=== PATIENT | female | born 1990 | race Hispanic/Latino ===

== ENCOUNTER 2020-10-10 05:14 | Inpatient (IN) | payer BC ==
--- NOTE | 2020-10-09 10:26 | PREOPHP ---
Date of Admission: 10/10/2020 History Of Present Illness: Ms. Morales is a 30-year-old female, 3, para 1- 0-1-1 now at 39 weeks gestation. She is admitted for repeat section secondary to prior cesa rean section with suspected cephalopelvic disproportion. She has been followed by me during this pre gnancy without significant complications other than the prior section. She denies recent co ugh, cold. Past Medical History: Please see record. Family History: Please see record. Review of Systems: She reports no recent cough, cold, fever, or chills. No recent nausea or vomiting. No breast knots or lumps. Infant has been active. She denies any vaginal bleeding or spotting. Only rare contracti ons. She denies any bowel problems. Physical Examination: General: Reveals a short-statured female, in no apparent distress. Neck: Supple without adenopathy or thyromegaly. Lungs: Clear. Cardiac: Regular rate and rhythm without murmurs. Breasts: Not examined. Abdomen: Estimated weight of 7+ pounds. Pelvic: Not performed. Extremities: No cyanosis, clubbing, or edema. Impression: A 39+ week , prior sections, suspected cephalopelvic disproportion. Plan: The patient will undergo repeat section. The risks and benefits are discussed. She has signed operative permit in my presence. BERNABE/CHAVA Voice ID: [id number]
[2020-10-09 10:57] LABS: Absolute Lymphocytes (CBC) 1.8 K/uL (0.7-4.9); Basophils % 0.4 % (0-1.3); Hematocrit 42.2 % (36.0-45.0); Lymphocytes % 22.7 % (15.3-44.8); MPV 11.3 fL (7.6-11.3); RBC Red Blood Cell Count 4.66 M/uL (3.86-4.86)
[2020-10-10] MEDS ORDERED: Ringers Lactate 1,000 ML IV PRN (05:16)
[2020-10-10] MEDS ORDERED: NA CIT/CITRIC AC 30 ML ORAL UDC PO ONE (05:22)
[2020-10-10] MEDS ORDERED: FAMOTIDINE 20 MG/2 ML VIAL IV ONE (05:23)
[2020-10-10 05:45] LABS: Urine Appearance CLEAR; Urine Bilirubin NEGATIVE (NEG); Urine Blood NEGATIVE (NEG); Urine Color YELLOW; Urine Glucose NEGATIVE (NEG); Urine Protein NEGATIVE (NEG); Urine Specific Gravity 1.015 (1.005-1.030); Urine Urobilinogen 0.2 mg/dL (0.2-1.0)
[2020-10-10 05:51] VITALS: BMI 31.8
[2020-10-10 05:59] LABS: Urine Microscopic Reflex ORDER UMIC
[2020-10-10] MEDS ORDERED: METOCLOPRAMIDE 10 MG/2mL INJ IV SCH (06:00)
[2020-10-10] MEDS ORDERED: Ringers Lactate 1,000 ML IV SCH (06:00)
[2020-10-10] MEDS ORDERED: CEFAZOLIN/SWI 2gm 2 GM/20 ML SYR ONE (06:04)
[2020-10-10 06:07] LABS: Urine Bacteria >50 /HPF (<20); Urine Mucus 1+ /HPF (NONE SEEN); Urine RBC <5 /HPF (NONE SEEN)
[2020-10-10] MEDS ORDERED: CEFAZOLIN 2 GM in NA CHLORIDE 0.9% 100 ML IVP SCH (07:00)
[2020-10-10] MEDS ORDERED: EPHEDRINE SULF 50 MG/ML VIAL ONE (07:09)
[2020-10-10] MEDS ORDERED: NS 0.9% VIAL 10 ML ONE (07:09)
[2020-10-10] MEDS ORDERED: OXYTOCIN 10 UNIT/ML ML IV ONE (07:09)
[2020-10-10] MEDS ORDERED: FENTANYL CITR 250 MCG/5 ML ONE (07:09)
[2020-10-10] MEDS ORDERED: MORPHINE SULFATE/PF 1 MG/ML (10 ML AMP) ONE (07:09)
[2020-10-10] MEDS ORDERED: Phenylephrine HCl 10 MG/ML 1 ML VIAL ONE (07:09)
[2020-10-10] MEDS ORDERED: LIDOCAINE 1% MPF 5 ML VIAL ONE (07:09)
[2020-10-10] MEDS ORDERED: BUPIVACAINE 0.75% (PF) 2 ML SP ONE (07:10)
[2020-10-10] MEDS ORDERED: METHYLERGONOVINE 0.2MG/ML AMP IM ONE (07:12)
[2020-10-10] MEDS ORDERED: CARBOPROST TROME 250 MCG/ML IM ONE (07:12)
[2020-10-10] MEDS ORDERED: METHYLERGONOVINE 0.2 MG TAB PO PRN (08:20)
[2020-10-10] MEDS ORDERED: CARBOPROST TROME 250 MCG/ML IM PRN (08:20)
[2020-10-10] MEDS ORDERED: ONDANSETRON 4 MG (ODT) TAB PO PRN (08:20)
[2020-10-10] MEDS ORDERED: METHYLERGONOVINE 0.2MG/ML AMP IM PRN (08:20)
--- NOTE | 2020-10-10 08:23 | P.BOP ---
Preoperative diagnosis: 39+ week , prior Postoperative diagnosis: same, viable male infant Primary procedure: repeat , delivery viable male Dental Technologist: Mateo Trammell Estimated blood loss: 800ml Anesthesia: Spinal Complications: None Drain(s): Urinary catheter Transferred to: Other (278) Condition: Good
[2020-10-10] MEDS ORDERED: OXYTOCIN/LR 20 UNIT/1,000 ML BAG IV SCH (09:00)
[2020-10-10] MEDS ORDERED: ONDANSETRON 4 MG/2 ML VIAL IV ONE (14:30)
[2020-10-10] MEDS ORDERED: ONDANSETRON 4 MG/2 ML VIAL ONE (15:03)
[2020-10-10] MEDS: KETOROLAC 30 MG/ML INJ IV PRN (15:55)
[2020-10-10 23:47] LABS: RPR (Rapid Plasma Reagin) NON-REACT (NON-REACT)
[2020-10-11] MEDS: KETOROLAC 30 MG/ML INJ IV PRN (00:20)
[2020-10-11 04:51] LABS: Absolute Lymphocytes (CBC) 2.3 K/uL (0.7-4.9); Basophils % 0.4 % (0-1.3); Hematocrit 33.5 % (36.0-45.0); Lymphocytes % 19.9 % (15.3-44.8); MPV 10.8 fL (7.6-11.3); RBC Red Blood Cell Count 3.69 M/uL (3.86-4.86)
--- NOTE | 2020-10-11 08:23 | P.PN ---
Date of Service: 10/11/20 S-No complaints O-Afeb, vs stable but bp low. Was low on admit. PO h/h , bandage dry, abdomen soft A-Satisfactory, greater than expected drop in h/h, with reasonable qbl P-Ambulate, encourage hydration, nurse assistance initially when up. Repeat cbc in am
--- NOTE | 2020-10-11 09:09 | OP ---
Surgeon: Behzad Beverly MD Mathematician Research: Nacho Trammell MD. Anesthesiologist: Dr. Harmon and Mr. Garcia. Preoperative Diagnoses: 39+ week , prior section, suspected cephalopelvic dispropo rtion. Procedures: Spinal block anesthesia, repeat section, delivery of viable male infant. Postoperative Diagnoses: 39+ week , prior section, suspected cephalopelvic disprop ortion. Description Of Procedure: After satisfactory level of spinal block anesthesia was obtained. [place] c atheter was placed. The patient received 2 g of Ancef for antibiotic prophylaxis. The patient was p repped and draped in the usual fashion for abdominal surgery. She had SCDs in place. A low abdomina l incision was made, carried down to the fascia. Fascia was incised with a combination of sharp and blunt dissection. This was in the midline. The peritoneum identified and incised. Vesico uterine peritoneum incised. Bladder flap developed slightly. A low transverse uterine incision was made and clear fluid noted. Upon attempts, the vertex was unstable, almost converted to a transverse position with manipulation and the aid of a posterior blade of forceps, a 7 pounds 15-ounce male inf ant, 9 and 9 was delivered. The cord was clamped, cut, and the placed in the warmer. C ord blood was obtained. The placenta was manually removed. The uterus was then exteriorized. The c ervix was dilated from above with a ring clamp, which was passed from the operative field. The uteru s was closed in 2 layers utilizing 0 Vicryl suture in a running nonlocking fashion. Second layer was used to imbricate the first. The uterus was returned to the peritoneal cavity, which was cleaned of amniotic fluid, debris, and blood clot. The rectus muscles were approximated in the midline with si mple sutures of 0 Vicryl. The fascia was closed with a running suture from either margin to the midd le of #1 Vicryl. Subcutaneous tissue approximated with subcutaneous sutures of 3-0 Vicryl, subdermal suture of 3-0 Vicryl, and a subcuticular suture of 4-0 Monocryl. Quantitative blood loss was 509 mL . The patient was taken to recovery room in satisfactory condition with sponge and needle counts cor rect x2. MPG/MODL Voice ID: [id number] Report ID: [id number]
[2020-10-11] MEDS: Oxycodone HCl/Acetaminophen 1 TAB TAB PO PRN (12:07)
[2020-10-11] MEDS: IBUPROFEN 600 MG TAB PO PRN (19:33)
[2020-10-12] MEDS: Oxycodone HCl/Acetaminophen 1 TAB TAB PO PRN (00:33)
[2020-10-12 08:02] VITALS: BP 114/64; TEMP 98.2
--- NOTE | 2020-10-12 08:57 | DS ---
Final Hospital Discharge Diagnoses: 1.39+ week delivered by repeat section. 2.Postoperative blood loss anemia. Procedures: Spinal block anesthesia. Repeat section. Delivery of viable male . Hospital Course: Patient is a 30-year-old female, 3, para 1-0-1-1 at 39+ we eks gestation, underwent repeat section, delivered a 7 pounds 15-ounce male infant with spin al block anesthesia by repeat section. Her postoperative course was complicated by a drop i n hemoglobin and hematocrit from her preoperative, but this remained stable when she was basically as ymptomatic from this. She was dismissed on the second postoperative day, ambulatory, on a select t with routine post section activity restrictions, to continue taking her iron and vitamins with prescription for Tylenol No.3 #10. She is to be seen back in my office in approximatel y 5-6 days. Lab included during this hospital stay with an admission hemoglobin and hematocrit of 13 .7/42.2, dismissal hematocrit of 34.3. She had urinalysis, which was reflexed. She has hepatitis B pending. COVID negative. RPR nonreactive. The urine specimen did show greater than 1000 colonies, but mixed isaias and she was asymptomatic, so the surgical prophylaxis with 2 g of Ancef is probably a dequate to treat any low-grade infection. BERNABE/CHAVA Voice ID: [id number] Report ID: [id number]
[2020-10-12] MEDS: IBUPROFEN 600 MG TAB PO PRN (09:10)
[2020-10-13 20:09] LABS: HBsAG Nonreactive (Nonreactive)
== END 2020-10-12 12:00 | disposition home or self-care (01) | DRG 787 ==
LOC: 2ND-WC 05:14
PROVIDERS: ADMIT Specialist; ATTEND Specialist
PROC: 10907ZC Drainage of Amniotic Fluid, Therapeutic from Products of Conception, Via Natural or Artificial Opening (ICD-10-PCS; 2020-10-10)
PROC: 10D00Z1 Extraction of Products of Conception, Low, Open Approach (ICD-10-PCS; principal; 2020-10-10 07:30)
DX: O34.211 Maternal care for low transverse scar from previous cesarean delivery (principal); D62 Acute posthemorrhagic anemia; Z3A.39 39 weeks gestation of pregnancy; Z37.0 Single live birth; Z20.822 Contact with and (suspected) exposure to COVID-19
CPT/HCPCS: 36415; 81003; 81015; 85014; 85025; 86592; 86850; 86900; 86901; 87086; 87088; 87340; 88307; J0690; J2210; J2370; J2405; J2590; J2765; J3010; J7120; U0003